=== PATIENT | female | born 1995 ===

== ENCOUNTER 2018-01-07 19:12 | Inpatient (IN) | payer BC ==
[2018-01-07 19:35] VITALS: BMI 33.0
[2018-01-07] MEDS ORDERED: Sodium Citrate/Citric Acid 15 ml Sol PO ONE (19:45)
[2018-01-07] MEDS ORDERED: cefOXitin IV 2 gm in Saline 2 GM in Sodium Chloride 0.9% 50 ML IVPB ONE (19:45)
[2018-01-07] MEDS ORDERED: Lactated Ringer's 1,000 ML IV SCH (20:00)
[2018-01-07 20:21] LABS: BASO % 0.4 % (0.0-2.0); EOS # 0.1 K/uL (0.0-0.7); EOS % 0.8 % (0.0-4.0); HEMOGLOBIN 12.1 g/dL (11.0-16.0); LYMPH # 1.1 K/uL (1.0-4.3); LYMPH % 14.8 % (20.0-40.0); MEAN CELL VOLUME 91.6 fL (81.0-99.0); MEAN CORPUSCULAR HEMOGLOBIN 30.8 pg (27.0-31.0); MEAN CORPUSCULAR HGB CONC 33.6 g/dL (33.0-37.0); MEAN PLATELET VOLUME 10.7 fL (7.2-11.7); MONO # 0.6 K/uL (0.0-0.8); MONO % 7.5 % (0.0-10.0); NEUT # 5.8 K/uL (1.8-7.0); NEUT % 76.5 % (50.0-75.0); RBC 3.94 Mil/uL (3.80-5.20); RED CELL DISTRIBUTION WIDTH 12.8 % (11.5-14.5); WHITE BLOOD COUNT 7.6 K/uL (4.8-10.8)
[2018-01-07] MEDS ORDERED: Sodium Citrate/Citric Acid 15 ml Sol ONE (20:37)
[2018-01-07 20:39] LABS: BLOOD UREA NITROGEN 9 mg/dL (7-17); CALCIUM 9.4 mg/dl (8.6-10.4); GFR AFRICAN-AMERICAN > 60; GFR NON-AFRICAN AMERICAN > 60
[2018-01-07] MEDS ORDERED: Oxytocin 20 units in LR 2,000 ML IV ONE (20:47)
[2018-01-07] MEDS ORDERED: Morphine 1 mg/ml preservative-free Inj(Duramorph) ONE (20:57)
[2018-01-07] MEDS ORDERED: cefOXitin IV 2 gm in Saline 2 GM/50 ML BAG IVPB ONE (21:01)
[2018-01-07 21:42] LABS: SQUAMOUS EPITHIAL 3 /hpf (0-5); URINE BACTERIA OCC (<OCC); URINE BILIRUBIN NEGATIVE (NEGATIVE); URINE BLOOD NEGATIVE (NEGATIVE); URINE CLARITY Hazy (Clear); URINE GLUCOSE (UA) NORMAL (Normal); URINE LEUKOCYTE ESTERASE NEG Leu/uL (Negative); URINE PROTEIN 1+ mg/dL (NEGATIVE); URINE UROBILINOGEN NORMAL mg/dL (0.2-1.0)
[2018-01-07 21:48] LABS: URINE COLOR YELLOW (YELLOW)
[2018-01-07] MEDS ORDERED: Oxycodone/Acetaminophen 5/325 mg Tab PO PRN (22:59)
[2018-01-07] MEDS ORDERED: Tdap Vaccine 0.5 ml Vial (10-64 yrs) IM ONE (22:59)
--- NOTE | 2018-01-07 23:14 | OBADHP ---
Datetime: 01/07/2018 23:06 IP Chief Complaint Other: risk of viral infection transmission around perineum Admit Comment, IP Provider: 39w3d with perineal eruption of viral lesions concerning for perina kenneth transmission, diagnosed by dr. joanna baugh. recommend proceed with urgent s ection to reduce risk of vertical transmission. discussed risks benefits, alternatives, patient and family in agreement. mother and patient speci fically first discussed, father of baby discussed at time of admission. questions from all family me mbers and all members answered. Pelvic Type - PN: Adequate Extremities - PN: Normal Abdomen - PN: Normal Back - PN: Normal Breast - PN: Normal Lungs - PN: Normal Heart - PN: Normal Thyroid - PN: Normal Neurologic - PN: Normal HEENT - PN: Normal General - PN: Normal Comments, ACOG Physical Exam: lower sacral, perianal, perineum and inner thigh viral lesions appeara nce of molluscum contangiousum Gestation - Est Wks by US: 39w3d Pool Provider: Negative Vital Signs Provider: Reviewed IP Chief Complaint: Uterine contractions; Other Dilatation, Provider: deferred Genitourinary Exam: Abnormal DTRs - PN: Normal EGA AdmitDate IP: 39.3 IP Adm Impression: Term, intrauterine IP Admit Plan: Admit to unit
--- NOTE | 2018-01-07 23:16 | OBDS ---
DELIVERY PERSONNEL Delivery Doctor: SHELBY Brush Operator: Brenda Matias RN Anesthesiologist: ÁNGEL MATERNAL INFORMATION Estimated Blood Loss (ml): 500 Provider Comments: dr. shah assisting. viral lesions covering perineum and extensive perianal re gion worry for vertical transmission. LINDA vertex. 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 LABOR SUMMARY EDC: 01/11/2018 00:00 No. Babies in Womb: 1 LABOR INFORMATION Group B Beta Strep: Positive STAGES OF LABOR Stage 3 hrs: 0 Stage 3 min: 2 CSECTION DELIVERY Primary Indication: Other Other Primary Indication: risk of viral infection transmission around perineum CSection Urgency: Non Elective BABY A INFORMATION Infant Delivery Date/Time: 01/07/2018 22:01 Method of Delivery: Born in Route : No : N/A Forceps: N/A Vacuum Extraction: N/A Shoulder Dystocia : No SHOULDER DYSTOCIA BABY A Delivery Date/Time: 01/07/2018 22:01 PRESENTATION/POSITION BABY A Presentation: Cephalic Cephalic Presentation: Vertex Vertex Position: Right Occipital Anterior Breech Presentation: N/A PLACENTA INFORMATION BABY A Placenta Delivery Time : 01/07/2018 22:03 Placenta Method of Delivery: Manual Removal Placenta Status: Delivered SCORES BABY A Heart Rate 1 min: >100 bpm Resp Effort 1 min: Slow, Irregular Reflex Irritability 1 min: Cough or Sneeze or Pulls Away Muscle Tone 1 min: Active Motion Color 1 min: Body [place], Extremities Blue Resuscitation Effort 1 min: Tactile Stimulation; Oxygen; PPV/NCPAP SCORE 1 MIN: 8 Heart Rate 5 min: >100 bpm Resp Effort 5 min: Good Cry Reflex Irritability 5 min: Cough or Sneeze or Pulls Away Muscle Tone 5 min: Active Motion Color 5 min: Body [place], Extremities Blue Resuscitation Effort 5 min: Tactile Stimulation SCORE 5 MIN: 9 INFORMATION BABY A Gestational Age at Delivery: 39.3 Gestational Status: Term Infant Outcome : Liveborn Condition : Stable Sex: Female IDENTIFICATION/MEDS BABY A ID Band Number: [id number] ID Band Location: Left Leg; Left Arm Sensor Applied: Yes Sensor Number: [id number] Sensor Location : Cord Clamp WEIGHT/LENGTH BABY A Birthweight (gms): 3370 Infant Weight (lb): 7 Infant Weight (oz): 7 Infant Length Inches: 19.00 (Annotations: Data stored by N on behalf of user) Length cms: 48.3 CORD INFORMATION BABY A No. Cord Vessels: 3 Nuchal Cord : Around Neck x1, Loose Cord Blood Taken: Yes Suction: Mouth; Nose ASSESSMENT BABY A Infant Complications: None Physical Findings at Delivery: Within Normal Limits Infant Respirations: Appears Normal Housing Inspector/ALS Called : No Care By: /Jay TIM RN Transferred To: [facility]
[2018-01-08 07:47] LABS: BASO % 0.2 % (0.0-2.0); EOS % 0.1 % (0.0-4.0); HEMOGLOBIN 11.2 g/dL (11.0-16.0); LYMPH # 0.8 K/uL (1.0-4.3); LYMPH % 7.1 % (20.0-40.0); MEAN CELL VOLUME 91.4 fL (81.0-99.0); MEAN CORPUSCULAR HEMOGLOBIN 31.2 pg (27.0-31.0); MEAN CORPUSCULAR HGB CONC 34.2 g/dL (33.0-37.0); MEAN PLATELET VOLUME 10.2 fL (7.2-11.7); MONO # 0.5 K/uL (0.0-0.8); MONO % 4.5 % (0.0-10.0); NEUT # 10.2 K/uL (1.8-7.0); NEUT % 88.1 % (50.0-75.0); PLATELET COUNT 233 K/uL (130-400); RBC 3.58 Mil/uL (3.80-5.20); RED CELL DISTRIBUTION WIDTH 12.9 % (11.5-14.5)
[2018-01-08 07:49] LABS: WHITE BLOOD COUNT 11.6 K/uL (4.8-10.8)
[2018-01-08 08:39] LABS: BANDS 1 % (0-2); LYMPHOCYTE 9 % (20-40); MONOCYTE 5 % (0-10); NEUTROPHIL 85 % (50-75); PLATELET ESTIMATE NORMAL (NORMAL); TOTAL CELLS COUNTED 100
[2018-01-08 10:38] VITALS: RESP 20
[2018-01-08] MEDS: Multiple Vitamins Tab PO SCH (10:38)
[2018-01-08] MEDS: Oxycodone/Acetaminophen 5/325 mg Tab PO PRN (23:41)
[2018-01-09] MEDS: Oxycodone/Acetaminophen 5/325 mg Tab PO PRN ×2 (05:32→11:50)
[2018-01-09 08:03] VITALS: BP 126/86; PULSE 68; TEMP 97.7; O2SAT 99
[2018-01-09] MEDS ORDERED: Tdap Vaccine 0.5 ml Vial (10-64 yrs) IM ONE (09:00)
[2018-01-09] MEDS: Multiple Vitamins Tab PO SCH (09:53)
--- NOTE | 2018-01-09 13:38 | CP.PCM.PN ---
Subjective - Date & Time of Evaluation Date of Evaluation: 01/09/18 Time of Evaluation: 13:36 - Subjective Subjective: 22 yo S/P Primary LTCS POD #2 Objective - Vital Signs/Intake and Output Vital Signs (last 24 hours): Temp Pulse Resp BP Pulse Ox 97.7 F 68 20 126/86 99 01/09/18 08:02 01/09/18 08:02 01/09/18 08:02 01/09/18 08:02 01/09/18 08:02 - Medications Medications: Current Medications Docusate Sodium (Colace) 100 mg PO BID [facility] Last Admin: 01/09/18 09:52 Dose: 100 mg Lactated Ringer's (Lactated Ringer's) 1,000 mls @ 125 mls/hr IV .Q8H [facility] Last Admin: 01/07/18 19:56 Dose: 125 mls/hr Ibuprofen (Motrin Tab) 600 mg PO Q6 PRN PRN Reason: Pain, Mild (1-3) Last Admin: 01/08/18 13:42 Dose: 600 mg Multivitamins (Hexavitamin) 1 tab PO DAILY [facility] Last Admin: 01/09/18 09:53 Dose: 1 tab Oxycodone/Acetaminophen (Percocet 5/325 Mg Tab) 1 tab PO Q4H PRN PRN Reason: Pain, moderate (4-7) Stop: 01/10/18 23:00 Last Admin: 01/08/18 13:42 Dose: 1 tab Oxycodone/Acetaminophen (Percocet 5/325 Mg Tab) 2 tab PO Q4H PRN PRN Reason: Pain, severe (8-10) Stop: 01/10/18 23:00 Last Admin: 01/09/18 11:50 Dose: 2 tab - Labs Labs: 01/08/18 07:34 01/07/18 20:16 - Constitutional Appears: Well - Head Exam Head Exam: ATRAUMATIC, NORMAL INSPECTION, NORMOCEPHALIC - Eye Exam Eye Exam: EOMI, Normal appearance, PERRL Pupil Exam: NORMAL ACCOMODATION, PERRL - ENT Exam ENT Exam: Mucous Membranes Moist, Normal Exam - Neck Exam Neck Exam: Full ROM, Normal Inspection. absent: Lymphadenopathy - Respiratory Exam Respiratory Exam: Clear to Ausculation Bilateral, NORMAL BREATHING PATTERN - Cardiovascular Exam Cardiovascular Exam: REGULAR RHYTHM, +S1, +S2. absent: Murmur - GI/Abdominal Exam GI & Abdominal Exam: Soft, Normal Bowel Sounds. absent: Tenderness - Rectal Exam Rectal Exam: NORMAL INSPECTION - Exam Exam: Circumcision, NORMAL INSPECTION External exam: NORMAL EXTERNAL EXAM Speculum exam: NORMAL SPECULUM EXAM Bimanual exam: NORMAL BIMANUAL EXAM - Extremities Exam Extremities Exam: Full ROM, Normal Capillary Refill, Normal Inspection. absent : Joint Swelling, Pedal Edema - Back Exam Back Exam: NORMAL INSPECTION - Neurological Exam Neurological Exam: Alert, Awake, CN II-XII Intact, Normal Gait, Oriented x3 - Psychiatric Exam Psychiatric exam: Normal Affect, Normal Mood - Skin Skin Exam: Dry, Intact, Normal Color, Warm Assessment and Plan - Assessment and Plan (Free Text) Assessment: 22 yo S/P Primary LTCS Plan: Stable Discharge Home
--- NOTE | 2018-01-12 09:21 | OP ---
PROCEDURE DATE: 01/07/2018 PREOPERATIVE DIAGNOSES: 1. Term , 39 weeks. 2. Viral lesions covering perineum and extensive perineal region with worry for vertical transmission. POSTOPERATIVE DIAGNOSES: 1. Term , 39 weeks. 2. Viral lesions covering perineum and extensive perineal region with worry for vertical transmission. SURGEON: Ricky Muse MD CRESTER: Dr. Colón. TYPE OF ANESTHESIA: Spinal. DESCRIPTION OF PROCEDURE: The patient was taken to the OR and time-out was performed. She was prepped and draped in the usual sterile fashion. The patient was seen in the recovery area. Risks, benefits, complications and treatment option and expected outcomes were discussed with the patient. The patient concurred with the proposed plan, given informed consent. The patient was taken to the operating room and time-out was performed. After induction of anesthesia, the patient was draped and prepped in the normal sterile fashion. A Pfannenstiel incision was made and carried down through the subcutaneous tissue to the fascia. Fascial incision was made and extended transversely. The fascia was from the underlying rectus tissues superiorly and inferiorly. The peritoneum was identified and entered. Peritoneal incision was extended longitudinally. The uterovesical peritoneal reflection was incised transversely and the bladder flap was bluntly freed from the lower uterine segment. A lower uterine segment incision was made. The fetus was delivered from vertex position. Apgars were recorded by nursing. After the umbilical cord was clamped, a segment of cord was obtained for evaluation and cord gases. The placenta was also sent to pathology. The uterine outline tubes and ovaries appeared normal. The uterine incision was closed with running locked sutures of 0 Vicryl and then an imbricating layer with 0 Monocryl. Hemostasis was observed. The peritoneum was reapproximated with 2-0 chromic. The fascia was then reapproximated with running sutures of 0 Vicryl from either ends. Subcutaneous tissue was reapproximated with 3-0 Vicryl. The skin was reapproximated using 4-0 Monocryl. Instrument, sponge, and needle counts were correct prior to the closure and conclusion of the case. FINDINGS: in vertex position, normal tubes and ovaries. ESTIMATED BLOOD LOSS: 500 mL. SPECIMEN: Placenta, cord pH. COMPLICATIONS: None. The patient tolerated the procedure well. DISPOSITION: Stable for PACU. I was present and scrubbed for the entire procedure. Ricky Muse MD
== END 2018-01-09 14:25 | disposition home or self-care (01) | DRG 766 ==
LOC: C.EROB 19:12 → C.4D 19:35 → UNDOADMIN 19:38 → C.4D 19:38 → C.4M 01-08 10:22
PROVIDERS: ADMIT Obstetrics & Gynecology; ATTEND Obstetrics & Gynecology
PROC: 10D00Z1 Extraction of Products of Conception, Low, Open Approach (ICD-10-PCS; principal; 2018-01-07)
DX: O98.52 Other viral diseases complicating childbirth (principal); B09 Unspecified viral infection characterized by skin and mucous membrane lesions; O69.81X0 Labor and delivery complicated by cord around neck, without compression, not applicable or unspecified; Z3A.39 39 weeks gestation of pregnancy; Z37.0 Single live birth